=== PATIENT | female | born 1950 | race Caucasian/White ===

== ENCOUNTER 2017-09-01 08:39 | Emergency (ER) | payer MEDICAID ==
[2017-09-01] MEDS: traMADol 50 MG TAB PO (11:00)
== END 2017-09-01 11:21 | disposition home or self-care (01) ==
LOC: FTE 08:39
DX: M79.604 Pain in right leg (principal); I10 Essential (primary) hypertension; E11.9 Type 2 diabetes mellitus without complications; Z79.82 Long term (current) use of aspirin; Z79.84 Long term (current) use of oral hypoglycemic drugs; Z95.0 Presence of cardiac pacemaker
CPT/HCPCS: 93971; 99284-25

== ENCOUNTER 2017-09-18 03:54 | Emergency (ER) | payer MEDICAID ==
[2017-09-18] MEDS: ONDANSETRON (ODT) 4 MG TAB ODT (04:38)
[2017-09-18] MEDS: HYDROCODONE/APAP (5/325) TAB PO (04:39)
== END 2017-09-18 05:32 | disposition home or self-care (01) ==
LOC: FTE 03:54
DX: S69.92XA Unspecified injury of left wrist, hand and finger(s), initial encounter (principal); I10 Essential (primary) hypertension; E11.9 Type 2 diabetes mellitus without complications; W01.0XXA Fall on same level from slipping, tripping and stumbling without subsequent striking against object, initial encounter; Y92.9 Unspecified place or not applicable; Z79.82 Long term (current) use of aspirin; Z95.0 Presence of cardiac pacemaker; Z79.84 Long term (current) use of oral hypoglycemic drugs
CPT/HCPCS: 73110; 73110-LT; 99283-25

== ENCOUNTER 2018-02-04 09:31 | Emergency (ER) | payer MEDICAID ==
[2018-02-04] MEDS: KETOROLAC 30 MG INJ IM (10:58)
[2018-02-04 11:05] LABS: ADD UMIC YES; UR ASCORBIC ACID NEGATIVE (NEGATIVE); UR BILIRUBIN (Dip) NEGATIVE (NEGATIVE); UR BLOOD (Dip) 1+ mg/dL (NEGATIVE); UR CLARITY CLEAR (CLEAR); UR COLOR STRAW (YELLOW); UR GLUCOSE (Dip) NEGATIVE (NEGATIVE); UR KETONES (Dip) NEGATIVE (NEGATIVE); UR LEUKOCYTE ESTERASE (Dip) NEGATIVE Leu/ul (NEGATIVE); UR NITRITE (Dip) NEGATIVE (NEGATIVE); UR RBC 1 /HPF (0-5); UR TOTAL PROTEIN (Dip) NEGATIVE (NEGATIVE); UR UROBILINOGEN (Dip) NEGATIVE (NEGATIVE); UR WBC 0 /HPF (0-5)
== END 2018-02-04 12:41 | disposition home or self-care (01) ==
LOC: FTE 09:31
DX: M54.5 Low back pain (principal); I10 Essential (primary) hypertension; E11.9 Type 2 diabetes mellitus without complications; Z95.0 Presence of cardiac pacemaker; Z79.82 Long term (current) use of aspirin; Z79.01 Long term (current) use of anticoagulants
CPT/HCPCS: 74176; 81001; 96372; 99285-25

== ENCOUNTER 2018-04-07 08:15 | Emergency (ER) | payer MEDICAID | END 2018-04-07 09:20 | disposition home or self-care (01) | LOC: FTE 08:15 | DX: M25.511 Pain in right shoulder (principal); M25.521 Pain in right elbow; M25.531 Pain in right wrist; M25.571 Pain in right ankle and joints of right foot; E11.9 Type 2 diabetes mellitus without complications; I10 Essential (primary) hypertension; Z79.82 Long term (current) use of aspirin; Z79.84 Long term (current) use of oral hypoglycemic drugs; Z79.01 Long term (current) use of anticoagulants; Z95.0 Presence of cardiac pacemaker | CPT/HCPCS: 99283-25; Z7502 ==

== ENCOUNTER 2018-06-26 16:51 | Emergency (ER) | payer MEDICAID ==
[2018-06-26] MEDS: ACETAMINOPHEN 325 MG TAB PO (19:22)
== END 2018-06-26 20:37 | disposition home or self-care (01) ==
LOC: FTE 16:51
DX: S70.02XA Contusion of left hip, initial encounter (principal); I10 Essential (primary) hypertension; E11.9 Type 2 diabetes mellitus without complications; W18.39XA Other fall on same level, initial encounter; Y92.9 Unspecified place or not applicable; Z79.84 Long term (current) use of oral hypoglycemic drugs; Z79.82 Long term (current) use of aspirin; Z79.01 Long term (current) use of anticoagulants; Z95.0 Presence of cardiac pacemaker
CPT/HCPCS: 73510; 99283-25